=== PATIENT | male | born 1985 | race Caucasian/White ===

== ENCOUNTER 2016-07-15 12:01 | Emergency (ER) | payer BC ==
[~2016-07-15] VITALS: Ht 170.2 cm; Wt 135.0 kg
[~2016-07-15 12:01] MED LIST: ACET325T33 PO; ALPR0.5T PO; NAPR-260 PO
[2016-07-15 12:37] VITALS: Ht 170.2 cm; Wt 135.0 kg
[2016-07-15] MEDS ORDERED: ONDANSETRON 4 MG INJ IV STA ×2 (13:54→14:02)
[2016-07-15] MEDS ORDERED: SOD CHLORIDE 0.9% 1,000 ML IV STA (13:54)
[2016-07-15] MEDS ORDERED: morphine 4 MG/ML VIAL IV STA (14:02)
[2016-07-15] MEDS: morphine 4 MG/ML VIAL IV STA ×2 (14:09→14:13)
[2016-07-15] MEDS ORDERED: ACETAMINOPHEN 325 MG TAB PO ONE (14:30)
[2016-07-15 14:32] LABS: ADD SCAN DIFF NO
[2016-07-15 14:34] LABS: BASOPHIL # 0.1 10^3/ul (0.0-0.1); BASOPHILS % 0.6 % (0.0-2.0); EOSINOPHILS # 0.1 10^3/ul (0.0-0.5); EOSINOPHILS % 1.1 % (0.0-7.0); HEMATOCRIT 45.7 % (42.0-52.0); HEMOGLOBIN 15.2 g/dl (14.0-18.0); LYMPHOCYTES # 1.9 10^3/ul (0.8-2.9); MEAN CORPUSCULAR HGB CONC 33.3 g/dl (32.0-37.0); MEAN CORPUSCULAR VOLUME 90.1 fl (82.0-101.0); MEAN PLATELET VOLUME 9.2 fl (7.4-10.4); MONOCYTE # 0.4 10^3/ul (0.3-0.9); NEUTROPHIL # 5.6 10^3/ul (1.6-7.5); NEUTROPHILS % 70.1 % (39.0-77.0); PLATELET COUNT 285 10^3/UL (140-415); RED BLOOD COUNT 5.07 10^6/ul (4.70-6.10); RED CELL DISTRIBUTION WIDTH 12.6 % (11.5-14.5)
[2016-07-15 14:37] LABS: ADD UMIC YES; URINE BILIRUBIN (Dip) NEGATIVE (NEGATIVE); URINE BLOOD (Dip) TRACE (NEGATIVE); URINE COLOR LT. YELLOW (YELLOW); URINE GLUCOSE (Dip) NEGATIVE (NEGATIVE); URINE KETONES (Dip) NEGATIVE (NEGATIVE); URINE LEUKOCYTE ESTERASE (Dip) NEGATIVE (NEGATIVE); URINE NITRITE (Dip) NEGATIVE (NEGATIVE); URINE TOTAL PROTEIN (Dip) NEGATIVE (NEGATIVE); URINE UROBILINOGEN (Dip) 0.2 E.U./dL (0.1-1.0)
[2016-07-15 14:42] LABS: URINE RBCS NONE SEEN /HPF (0)
[2016-07-15 14:48] LABS: ALBUMIN 4.6 g/dl (3.3-4.9)
[2016-07-15 14:51] LABS: ALBUMIN/GLOBULIN RATIO 1.24; BILIRUBIN,INDIRECT 0.7 mg/dl (0-1.1); BILIRUBIN,TOTAL 0.7 mg/dl (0.2-1.3); CREATININE 0.74 mg/dl (0.61-1.24); TOTAL PROTEIN 8.3 g/dl (6.1-8.1)
[2016-07-15 14:52] LABS: CALCIUM 9.4 mg/dl (8.4-10.2); POTASSIUM 3.5 mmol/L (3.5-5.1)
--- NOTE | 2016-07-15 15:13 | RADRPT ---
PROCEDURE: US Abdomen. CLINICAL INDICATION: Abdominal Pain TECHNIQUE: Multiple real-time images were acquired of the patient's abdomen and retroperitoneum ut ilizing a high resolution transducer. COMPARISON: None FINDINGS: The pancreas is poorly visualized secondary to overlying bowel gas. The liver is diffusely increase d in echogenicity. This most likely represents fatty infiltration of the liver. The liver is enlarg ed measuring 20.2 cm in length. The gallbladder is normal without evidence of cholelithiasis, pericholecystic fluid or gallbladder w all thickening. The technologist reports a negative sonographic Caban's sign. The common bile du ct measures 4.0 mm in maximal dimension. No free fluid is identified. The right kidney is unremarkable without evidence of hydronephrosis or mass. The right kidney measu res 13.1 cm in length. IMPRESSION: 1. The liver is enlarged and diffusely increased in echogenicity. This most likely represents fatt y infiltration of the liver. 2. Otherwise, no significant abnormalities are identified. RPTAT:AAJJ Physician Anjelica Date Time Electronically viewed and signed by Physician Anjelica on 07/15/2016 15:13 BENNIE/
--- NOTE | 2016-07-15 15:16 | ERD ---
ER Documentation Chief Complaint Date/Time DATE: 07/15/16 TIME: 15:12 Chief Complaint LT UPPPER QUADRANT AP RADIATING TO THE BACK HPI 30-year-old male presents the emergency department complaining of right upper abdominal pain times which radiates to his back. Patient states that the pain has been intermittent over the past 2-3 days. He rates the pain as a burning 4 out of 10 intermittent pain and denies any alleviating or exacerbating factors. Patient has not attempted to treat his pain symptoms at home. Patient states he experienced these symptoms one time before 6 years ago and was diagnosed with liver disease. Patient states that he recently began drinking alcohol again and reports drinking 2-3, 40 ounce beers per day. Patient denies any fever, chills, nausea, vomiting, diarrhea. Patient denies any confusion, blurred vision, polyuria or polydipsia. ROS All systems reviewed and are negative except as per history of present illness. Medications Home Meds Active Scripts Naproxen* (Naprosyn*) 500 Mg Tablet, 500 MG PO BID for 7 Days, TAB Prov:DARLIN SUÁREZ PA-C 07/15/16 Naproxen* (Naprosyn*) 500 Mg Tablet, 500 MG PO BID Y for PAIN AND/OR INFLAMMATION, #30 TAB Prov:OTIS LIZARRAGA PA-C 10/28/15 Acetaminophen* (Tylenol*) 325 Mg Tablet, 2 TAB PO Q8 Y for PAIN AND OR ELEVATED TEMP, #20 TAB Prov:OTIS LIZARRAGA PA-C 10/28/15 Alprazolam* (Xanax*) 0.5 Mg Tab, 0.5 MG PO Q8H Y for ANXIETY, #10 TAB Prov:OTIS LIZARRAGA PA-C 10/28/15 Reported Medications [None] No Conflict Check 10/27/09 Allergies Allergies: Coded Allergies: No Known Drug Allergy (Verified Allergy, Unknown, 10/02/12) PMhx/Soc History of Surgery: Yes (BACK, 2005, RIGHT WRIST 2003) Anesthesia Reaction: No Hx Neurological Disorder: No Hx Respiratory Disorders: No Hx Cardiac Disorders: No Hx Psychiatric Problems: No Hx Miscellaneous Medical Probl: No Hx Alcohol Use: Yes (HAD DRINK 1/2 HOUR AGO, known alcohol abuse) Hx Substance Use: No Hx Tobacco Use: Yes (GAYATHRI) Smoking Status: Unknown if ever smoked Physical Exam Vitals Vital Signs Date Time Temp Pulse Resp B/P Pulse Ox O2 Delivery O2 Flow Rate FiO2 07/15/16 12:37 98.8 71 16 173/96 97 Physical Exam Const: Well-developed, well-nourished, no acute distress Head: Atraumatic Eyes: Normal Conjunctiva ENT: Normal External Ears, Nose and Mouth. Neck: Full range of motion..~ No meningismus. Resp: Clear to auscultation bilaterally Cardio: Regular rate and rhythm, no murmurs Abd: Positive Caban's sign. Soft, non tender, non distended. Negative McBurney point tenderness. Normal bowel sounds Skin: No jaundice. No petechiae or rashes Back: No midline or flank tenderness Ext: No cyanosis, or edema Neur: Awake and alert Psych: Normal Mood and Affect Result Diagram: 07/15/16 1407 07/15/16 1407 Results 24 hrs Laboratory Tests Test 07/15/16 14:07 07/15/16 14:09 White Blood Count 8.010^3/ul Red Blood Count 5.0710^6/ul Hemoglobin 15.2g/dl Hematocrit 45.7% Mean Corpuscular Volume 90.1fl Mean Corpuscular Hemoglobin 30.0pg Mean Corpuscular Hemoglobin Concent 33.3g/dl Red Cell Distribution Width 12.6% Platelet Count 81034^3/UL Mean Platelet Volume 9.2fl Neutrophils % 70.1% Lymphocytes % 23.0% Monocytes % 5.0% Eosinophils % 1.1% Basophils % 0.6% Nucleated Red Blood Cells % 0.0/100WBC Neutrophils # 5.610^3/ul Lymphocytes # 1.910^3/ul Monocytes # 0.410^3/ul Eosinophils # 0.110^3/ul Basophils # 0.110^3/ul Nucleated Red Blood Cells # 0.010^3/ul Sodium Level 138mmol/L Potassium Level 3.5mmol/L Chloride Level 101mmol/L Carbon Dioxide Level 24mmol/L Anion Gap 17 Blood Urea Nitrogen 14mg/dl Creatinine 0.74mg/dl Glucose Level 127mg/dl Calcium Level 9.4mg/dl Total Bilirubin 0.7mg/dl Direct Bilirubin 0.00mg/dl Indirect Bilirubin 0.7mg/dl Aspartate Amino Transf (AST/SGOT) 101IU/L Alanine Aminotransferase (ALT/SGPT) 85IU/L Alkaline Phosphatase 85IU/L Total Protein 8.3g/dl Albumin 4.6g/dl Globulin 3.70g/dl Albumin/Globulin Ratio 1.24 Lipase 46U/L Urine Color LT. YELLOW Urine Clarity CLEAR Urine pH 5.5 Urine Specific Blackstone >=1.030 Urine Ketones NEGATIVE Urine Nitrite NEGATIVE Urine Bilirubin NEGATIVE Urine Urobilinogen 0.2 E.U./dL Urine Leukocyte Esterase NEGATIVE Urine Microscopic RBC NONE SEEN/HPF Urine Microscopic WBC NONE SEEN/HPF Urine Hemoglobin TRACE Urine Glucose NEGATIVE% Urine Total Protein NEGATIVE Current Medications Medications (Trade) Dose Ordered Sig/Denzel Route PRN Reason Start Time Stop Time Status Last Admin Dose Admin Sodium Chloride (NS) 1,000 ml @ 1,000 mls/hr Q1H STAT IV 07/15/16 13:54 07/15/16 14:53 DC 07/15/16 14:09 Morphine Sulfate (morphine) 4 mg ONCE STAT IV 07/15/16 13:54 07/15/16 14:14 DC Ondansetron HCl (Zofran Inj) 4 mg ONCE STAT IV 07/15/16 13:54 07/15/16 14:14 DC 07/15/16 14:09 Morphine Sulfate (morphine) 4 mg ONCE STAT IV 07/15/16 14:02 07/15/16 14:05 DC Ondansetron HCl (Zofran Inj) 4 mg ONCE STAT IV 07/15/16 14:02 07/15/16 14:05 DC Acetaminophen (Tylenol Tab) 650 mg ONCE ONCE PO 07/15/16 14:30 07/15/16 14:31 DC 07/15/16 14:31 Procedures/MDM PROCEDURE: US Abdomen. CLINICAL INDICATION: Abdominal Pain TECHNIQUE: Multiple real-time images were acquired of the patient's abdomen and retroperitoneum utilizing a high resolution transducer. COMPARISON: None FINDINGS: The pancreas is poorly visualized secondary to overlying bowel gas. The liver is diffusely increased in echogenicity. This most likely represents fatty infiltration of the liver. The liver is enlarged measuring 20.2 cm in length. The gallbladder is normal without evidence of cholelithiasis, pericholecystic fluid or gallbladder wall thickening. The technologist reports a negative sonographic Caban's sign. The common bile duct measures 4.0 mm in maximal dimension. No free fluid is identified. The right kidney is unremarkable without evidence of hydronephrosis or mass. The right kidney measures 13.1 cm in length. IMPRESSION: 1. The liver is enlarged and diffusely increased in echogenicity. This most likely represents fatty infiltration of the liver. 2. Otherwise, no significant abnormalities are identified. RPTAT:AAJJ Rafi Marlow Physician Date Time Electronically viewed and signed by Rafi Marlow Physician on 07/15/2016 15: 13 [facility]/ CC: DARLIN SUÁREZ PA-C 30-year-old male with history of alcohol abuse, presents with right upper quadrant abdominal pain. Laboratory workup revealed evidence of elevated liver enzymes and slightly elevated white blood cell count. Otherwise unremarkable. Ultrasound revealed evidence of enlarged liver. No evidence of cholecystitis at this time. Based on clinical presentation as well as laboratory workup I have low suspicion for cholecystitis, pancreatitis, perforated ulcer, or acute coronary syndrome, As patient does not exhibit signs of chest pain, shortness of breath, nausea, vomiting, or fever. Patient received fluids as well as Tylenol in the emergency department and reports improvement of pain symptoms. I counseled the patient regarding his use of alcohol and recommended to stop drinking. Patient to follow-up with GI specialist if symptoms continue. Patient's blood pressure was elevated (>120/80) but appears stable without evidence of hypertension emergency or urgency. The patient was counseled about the risks of hypertension and urged to pursue outpatient monitoring and therapy within a week with their primary care physician. Based on patient's history of present illness and physical examination the decision was made to discharge. The patient was re-evaluated after ED treatment and stabilizing measures, and symptoms have improved. There is no evidence of life threatening injuries or illnesses at this time. On re-examination, patient resting in no distress, stable vital signs, reports feeling better and safe for discharge with outpatient follow up with PMD in 1-2 days. Patient given return precautions. Departure Diagnosis: Primary Impression: Abdominal pain Abdominal location: right upper quadrant Qualified Code: R10.11 - Right upper quadrant abdominal pain Additional Impression: Fatty liver, alcoholic DARLIN SUÁREZ PA-C Jul 15, 2016 15:16
[2016-07-15] MEDS ORDERED: NAPR-260 PO (15:22)
== END 2016-07-15 15:50 | disposition home or self-care (01) ==
LOC: FTE 12:01
DX: R10.11 Right upper quadrant pain (principal); K70.0 Alcoholic fatty liver; F17.210 Nicotine dependence, cigarettes, uncomplicated
CPT/HCPCS: 36415; 76705; 80053; 81001; 83690; 85025; 96374; 96375; 99285; J2270; J2405; J7030; 81003